=== PATIENT | female | born 1995 | race Two or more races ===

== ENCOUNTER 2019-11-13 17:18 | Inpatient (IN) | payer OTHER ==
[~2019-11-13] VITALS: Ht 160 cm; Wt 74.4 kg
[2019-11-13] MEDS ORDERED: PRENATABS RX T1 EACH PO (17:27)
[2019-11-13] MEDS ORDERED: SYNTHROID50 MCG PO (18:50)
== END 2019-11-17 15:58 | disposition home or self-care (01) | DRG 807 ==
LOC: LDR 17:18 → SURG-SUITE 17:18 → OB/GYN 11-15 00:19 → SURG-SUITE 11-15 01:52
PROVIDERS: ADMIT Obstetrics & Gynecology; ATTEND Obstetrics & Gynecology
PROC: 10E0XZZ Delivery of Products of Conception, External Approach (ICD-10-PCS; principal; 2019-11-15)
PROC: 4A1HXFZ Monitoring of Products of Conception, Cardiac Rhythm, External Approach (ICD-10-PCS; 2019-11-15)
PROC: 3E033VJ Introduction of Other Hormone into Peripheral Vein, Percutaneous Approach (ICD-10-PCS; 2019-11-15)
DX: O80 Encounter for full-term uncomplicated delivery (principal); Z37.0 Single live birth; Z3A.39 39 weeks gestation of pregnancy

== ENCOUNTER 2022-03-01 02:50 | Emergency (ER) | payer OTHER ==
[~2022-03-01] VITALS: Ht 160 cm; Wt 65.8 kg
[~2022-03-01 02:50] MED LIST: PRENATABS RX T1 EACH PO; SYNTHROID50 MCG PO
== END 2022-03-01 13:42 | disposition home or self-care (01) ==
LOC: ER 02:50
DX: O21.9 Vomiting of pregnancy, unspecified (principal); Z3A.12 12 weeks gestation of pregnancy

== ENCOUNTER 2022-05-06 08:17 | Emergency (ER) | payer OTHER ==
[~2022-05-06] VITALS: Ht 160 cm; Wt 69.4 kg
[2022-05-06] MEDS ORDERED: OSEL75CA PO (13:39)
== END 2022-05-06 15:24 | disposition home or self-care (01) ==
LOC: ER 08:17
DX: J09.X2 Influenza due to identified novel influenza A virus with other respiratory manifestations (principal); Z20.828 Contact with and (suspected) exposure to other viral communicable diseases

== ENCOUNTER 2022-08-11 05:24 | Inpatient (IN) | payer OTHER ==
[~2022-08-11] VITALS: Ht 160 cm; Wt 75.3 kg
[~2022-08-11 05:24] MED LIST changes: +OSEL75CA PO
== END 2022-08-13 16:42 | disposition home or self-care (01) | DRG 807 ==
LOC: LDR 05:24 → OB/GYN 20:23
PROVIDERS: ADMIT Obstetrics & Gynecology; ATTEND Obstetrics & Gynecology
PROC: 10E0XZZ Delivery of Products of Conception, External Approach (ICD-10-PCS; principal; 2022-08-11)
PROC: 4A1HXCZ Monitoring of Products of Conception, Cardiac Rate, External Approach (ICD-10-PCS; 2022-08-11)
DX: O80 Encounter for full-term uncomplicated delivery (principal); Z37.0 Single live birth; Z3A.39 39 weeks gestation of pregnancy; Z20.822 Contact with and (suspected) exposure to COVID-19